=== PATIENT | female | born 1985 | race Two or more races ===

== ENCOUNTER 2021-04-12 18:07 | Observation (INO) | payer MEDICAID ==
[~2021-04-12] VITALS: Ht 157.5 cm; Wt 67.1 kg
[2021-04-12] MEDS ORDERED: TERBUTALINE SULFATE 1 MG/ML 1ML VIAL SC SCH (19:15)
[2021-04-12] MEDS ORDERED: LACTATED RINGER'S 1,000 ML IV ONE (19:15)
[2021-04-12] MEDS ORDERED: LACTATED RINGER'S 1,000 ML IV SCH (19:15)
[2021-04-12] MEDS ORDERED: NITR-87 PO (19:30)
[2021-04-12] MEDS ORDERED: PREN-96 PO (20:48)
[2021-04-12] MEDS ORDERED: NITROFURANTOIN 100 mg CAP PO SCH (22:00)
== END 2021-04-12 21:02 | disposition home or self-care (01) ==
LOC: LDRP 18:07
PROVIDERS: ADMIT Obstetrics & Gynecology; ATTEND Obstetrics & Gynecology
DX: O26.893 Other specified pregnancy related conditions, third trimester (principal); R10.30 Lower abdominal pain, unspecified; Z3A.30 30 weeks gestation of pregnancy
CPT/HCPCS: 59025; 76818; 81002; 94760; 96360; 96372; G0378; J3105

== ENCOUNTER 2021-06-02 02:22 | Observation (INO) | payer MEDICAID ==
[~2021-06-02 02:22] MED LIST: NITR-87 PO; PREN-96 PO
== END 2021-06-02 03:37 | disposition home or self-care (01) ==
LOC: LDRP 02:22
PROVIDERS: ADMIT Obstetrics & Gynecology Obstetrics; ATTEND Obstetrics & Gynecology Obstetrics
DX: O62.9 Abnormality of forces of labor, unspecified (principal); Z3A.37 37 weeks gestation of pregnancy
CPT/HCPCS: 59025; 81002; G0378; G0379

== ENCOUNTER 2021-06-02 04:04 | Observation (INO) | payer MEDICAID ==
[~2021-06-02] VITALS: Ht 30.5 cm; Wt 0.5 kg
[2021-06-02] MEDS ORDERED: TERBUTALINE SULFATE 1 MG/ML 1ML VIAL SC ONE (05:00)
== END 2021-06-02 05:39 | disposition home or self-care (01) ==
LOC: LDRP 04:04
PROVIDERS: ADMIT Obstetrics & Gynecology Obstetrics; ATTEND Obstetrics & Gynecology Obstetrics
DX: O62.9 Abnormality of forces of labor, unspecified (principal); Z3A.37 37 weeks gestation of pregnancy
CPT/HCPCS: 59025; 81002; 96372; G0378; J3105

== ENCOUNTER 2021-06-04 09:55 | Observation (INO) | payer MEDICAID ==
[~2021-06-04] VITALS: Ht 157.5 cm; Wt 68.2 kg
[2021-06-04] MEDS ORDERED: ACETAMINOPHEN 500 MG TAB PO ONE (10:45)
[2021-06-04] MEDS ORDERED: BUTORPHANOL TARTRATE 2 MG/1 ML VIAL IV ONE (11:30)
== END 2021-06-04 15:09 | disposition home or self-care (01) ==
LOC: LDRP 09:55
PROVIDERS: ADMIT Obstetrics & Gynecology Obstetrics; ATTEND Obstetrics & Gynecology Obstetrics
DX: O47.03 False labor before 37 completed weeks of gestation, third trimester (principal); Z3A.37 37 weeks gestation of pregnancy
CPT/HCPCS: 59025; 81002; 94760; 96374; G0378; G0379; J0595

== ENCOUNTER 2021-06-05 09:24 | Inpatient (IN) | payer MEDICAID ==
[~2021-06-05] VITALS: Ht 30.5 cm; Wt 0.5 kg
[2021-06-05 10:35] LABS: Basophils # (auto) 0.1 10 ^3/uL (0-0.2); Basophils % (auto) 0.6 % (0.0-2.0); Eosinophils # (auto) 0 10 ^3/uL (0-0.8); Hematocrit 35.8 % (36.0-46.0); Hemoglobin 11.6 g/dL (12.2-16.2); Lymphocytes # (auto) 1.6 10 ^3/uL (0.4-5.4); Lymphocytes % (auto) 12.9 % (10.0-50.0); Mean Corpuscular Hemoglobin 27.4 pg (28.0-32.0); Mean Corpuscular Hgb Conc. 32.4 g/dL (32.0-36.0); Mean Corpuscular Volume 84.6 fL (80.0-100.0); Monocytes # (auto) 0.7 10 ^3/uL (0-1.3); Monocytes % (auto) 5.4 % (0.0-12.0); Neutrophils # (auto) 10.3 10 ^3/uL (1.6-8.6); Neutrophils % (auto) 81.1 % (37.0-80.0); Red Blood Cells 4.23 10^6/uL (4.0-5.20); Red Cell Distribution Width 17.3 % (11.8-14.3); White Blood Cell 12.7 10^3/uL (4.4-10.8)
[2021-06-05] MEDS ORDERED: BUTORPHANOL TARTRATE 2 MG/1 ML VIAL IV ONE (10:45)
[2021-06-05 10:51] LABS: INR 0.96 (0.9-1.15); Partial Thromboplastin Time 25.8 sec (23.6-33.0)
[2021-06-05 10:58] LABS: Albumin 2.8 g/dL (3.4-5.0); Calcium 9.4 mg/dL (8.5-10.1); Potassium 3.8 mmol/L (3.5-5.1)
[2021-06-05 11:01] LABS: BUN/Creatinine Ratio 4.1; Bilirubin, Total 0.3 mg/dL (0.2-1.0); Total Protein 7.4 g/dL (6.4-8.2)
[2021-06-05] MEDS: TERBUTALINE SULFATE 1 MG/ML 1ML VIAL SC SCH ×2 (11:05→11:47)
[2021-06-05] MEDS ORDERED: BUTORPHANOL TARTRATE 2 MG/1 ML VIAL IM ONE (11:15)
[2021-06-05] MEDS ORDERED: LACTATED RINGER'S 1,000 ML IV ONE (12:00)
[2021-06-05] MEDS ORDERED: LACTATED RINGER'S 1,000 ML IV SCH (13:30)
[2021-06-05] MEDS ORDERED: PROMETHAZINE HCL 25 MG/ML 1ML IV PRN (16:15)
[2021-06-05] MEDS ORDERED: LIDOCAINE 2%HCL (LOCAL ANESTH.) INJ 20ML MDV IJ PRN (16:15)
[2021-06-05] MEDS ORDERED: PENICILLIN G POT 5MIL/D5 50ML 50 ML IV ONE (16:15)
[2021-06-05] MEDS ORDERED: BUTORPHANOL TARTRATE 2 MG/1 ML VIAL IV PRN ×2 (16:15)
[2021-06-05 16:56] LABS: Urine Bacteria NONE SEEN /hpf (None Seen); Urine Blood TRACE /uL (Negative); Urine Mucus FEW (None Seen); Urine Specific Gravity 1.008 (1.001-1.035); Urine WBC 11 /hpf (0 - 5)
[2021-06-05 17:13] LABS: Amphetamine Screen, Urine NEGATIVE (NEGATIVE); Barbiturate Scree,Urine NEGATIVE (NEGATIVE); Benzodiazephine Screen, Urine NEGATIVE (NEGATIVE); Cannabinoid Screen, Urine NEGATIVE (NEGATIVE); Cocaine Screen, Urine NEGATIVE (NEGATIVE); Opiate Scree,Urine NEGATIVE (NEGATIVE); Phencyclidine Screen, Urine NEGATIVE (NEGATIVE)
[2021-06-05 17:19] LABS: Alcohol, Urine < 3.0 mg/dL (0-10)
[2021-06-05] MEDS: PHISODERM TOP SOLN 240ML BTL TOP PRN (17:21)
[2021-06-05] MEDS: DERMOPLAST 60ML BOTTLE TOP PRN (17:21)
[2021-06-05] MEDS: WITCH HAZEL-GLYCERIN PAD TOP PRN (17:22)
[2021-06-05] MEDS ORDERED: METHYLERGONOVINE MALEATE 0.2 MG/ML AMP IM ONE (17:30)
[2021-06-05] MEDS ORDERED: LACT. RINGERS/OXYTOCIN 20UNITS 500 ML IV ONE ×2 (17:30→18:00)
[2021-06-05] MEDS ORDERED: ePHEDrine SULFATE 50 MG/ML AMP IV ONE (18:00)
[2021-06-05] MEDS ORDERED: LIDOCAINE HCL 2 %PF INJ 10ML AMP IJ ONE (18:00)
[2021-06-05] MEDS ORDERED: NALOXONE HCL 0.4 MG/ML VIAL IV ONE (18:00)
[2021-06-05] MEDS ORDERED: ROPIVACAINE HCL 200 ML EPI SCH (18:00)
[2021-06-05] MEDS ORDERED: fentaNYL CITRATE 100 MCG/2 ML VL IV ONE (18:00)
[2021-06-05] MEDS ORDERED: PENICILLIN G POTASSIUM 2,500,000 UNITS in D5W 5% 50 ML IV SCH (20:15)
[2021-06-05] MEDS ORDERED: TERBUTALINE SULFATE 1 MG/ML 1ML VIAL SC PRN (22:15)
[2021-06-05] MEDS ORDERED: LACT. RINGERS/OXYTOCIN 20UNITS 1,000 ML IV SCH (22:15)
[2021-06-06] MEDS ORDERED: miSOPROStol 100 mcg TAB PR PRN (03:00)
[2021-06-06] MEDS ORDERED: DIPHENOXYLATE W/ATROPINE 2.5 MG TAB PO ONE (03:00)
[2021-06-06] MEDS ORDERED: miSOPROStol 100 mcg TAB SL PRN (03:00)
[2021-06-06] MEDS ORDERED: ONDANSETRON HCL 4 MG/2 ML VIAL IV PRN (03:00)
[2021-06-06] MEDS ORDERED: CARBOPROST TROMETHAMINE 250 MCG/1ML VIAL IM ONE (03:00)
[2021-06-06] MEDS ORDERED: METHYLERGONOVINE MALEATE 0.2 MG/ML AMP IM ONE (03:00)
[2021-06-06] MEDS: DERMOPLAST 60ML BOTTLE TOP PRN (05:17)
[2021-06-06] MEDS: PHISODERM TOP SOLN 240ML BTL TOP PRN (05:17)
[2021-06-06] MEDS: WITCH HAZEL-GLYCERIN PAD TOP PRN (05:18)
[2021-06-06] MEDS ORDERED: IBUPROFEN 800 MG TAB PO PRN (05:30)
[2021-06-06] MEDS ORDERED: IBUPROFEN 600 MG TAB PO PRN (05:30)
[2021-06-06] MEDS ORDERED: ONDANSETRON ODT 4 MG TAB PO PRN (05:30)
[2021-06-06] MEDS ORDERED: ACETAMINOPHEN 325 MG TAB PO PRN (05:30)
[2021-06-06] MEDS: ceFAZolin 1GM/50ML 50 ML IV SCH ×3 (06:32→22:50)
[2021-06-06 07:00] VITALS: BP 117/64
[2021-06-06 07:06] LABS: RPR Non Reactive (Non Reactive)
[2021-06-06 11:00] VITALS: BP 118/67
[2021-06-06] MEDS: DOCUSATE SOD 100 MG CAP PO SCH ×2 (12:57→22:50)
[2021-06-06] MEDS: HYDROcodone-ACET 5/325MG TAB PO PRN ×2 (12:57→17:51)
[2021-06-06 15:00] VITALS: BP 112/67
[2021-06-06 18:36] VITALS: BP 112/71
[2021-06-06 23:03] VITALS: BP 104/64
[2021-06-07 03:00] VITALS: BP 109/75
[2021-06-07] MEDS: ceFAZolin 1GM/50ML 50 ML IV SCH ×3 (06:36→21:56)
[2021-06-07 06:40] VITALS: BP 126/80
[2021-06-07 10:48] VITALS: BP 112/67
[2021-06-07] MEDS: DOCUSATE SOD 100 MG CAP PO SCH ×2 (12:38→22:00)
[2021-06-07 15:21] VITALS: BP 120/69
[2021-06-07 19:25] VITALS: BP 112/73
[2021-06-07 23:00] VITALS: BP 113/67
[2021-06-08 03:30] VITALS: BP 124/78
[2021-06-08] MEDS: ceFAZolin 1GM/50ML 50 ML IV SCH (05:52)
[2021-06-08 07:00] VITALS: BP 122/58
[2021-06-08] MEDS: DOCUSATE SOD 100 MG CAP PO SCH (10:00)
[2021-06-08 10:30] VITALS: BP 127/66
[2021-06-08] MEDS ORDERED: TETANUS-DIPTH-ACEL PERTUSSIS 0.5ML SYR Tdap IM ONE (10:45)
== END 2021-06-08 12:20 | disposition home or self-care (01) | DRG 560 ==
LOC: LDRP 09:24 → OBSVTOIN 15:55
PROVIDERS: ADMIT Obstetrics & Gynecology; ATTEND Obstetrics & Gynecology
PROC: 10E0XZZ Delivery of Products of Conception, External Approach (ICD-10-PCS; principal; 2021-06-06)
PROC: 0KQM0ZZ Repair Perineum Muscle, Open Approach (ICD-10-PCS; 2021-06-06)
PROC: 3E0DXGC Introduction of Other Therapeutic Substance into Mouth and Pharynx, External Approach (ICD-10-PCS; 2021-06-06)
PROC: 3E0R3BZ Introduction of Anesthetic Agent into Spinal Canal, Percutaneous Approach (ICD-10-PCS; 2021-06-06)
PROC: 00HU33Z Insertion of Infusion Device into Spinal Canal, Percutaneous Approach (ICD-10-PCS; 2021-06-06)
DX: O24.429 Gestational diabetes mellitus in childbirth, unspecified control (principal); Z37.0 Single live birth; O70.1 Second degree perineal laceration during delivery; Z3A.37 37 weeks gestation of pregnancy; Z20.822 Contact with and (suspected) exposure to COVID-19
CPT/HCPCS: 36415; 59025; 59409; 62282; 76815; 80053; 80307; 81001; 81002; 85025; 85610; 85730; 86592; 86850; 86900; 86901; 87426; 94760; 96360; 96361; 96365; 96366; 96372; G0378; J0690; J2405; J2540; J2590; J7060